=== PATIENT | female | born 1955 | race Caucasian/White ===

== ENCOUNTER → 2016-09-01 | Outpatient (CLI) | payer OTHER ==
[2014-01-15 17:28] VITALS: BP 94/51
[~2016-09-01] MED LIST: ACET325T9 PO; LISI1TAB7 PO; LISI2.5T PO; LORA10TA3 PO; LORA5TAB7 PO; OMEP20CA9 PO; OMEP40CA5 PO; TRAM50TA PO
--- NOTE | 2016-09-01 15:08 | KCIC ---
PROCEDURE AP and lateral left hip radiographs 09/01/2016 HISTORY Left hip pain for 6 months. FINDINGS AP and lateral digital radiographs of the left hip were obtained. No fracture or dislocation of the left hip is seen. Mild degenerative changes are seen involving the left hip. Mild degenerative changes are seen involving the left SI joint. IMPRESSION Mild degenerative changes are seen involving the left hip. No acute osseous abnormality is seen. Electronically signed by: Emanuel Blair MD (Sep 01, 2016 15:06:07)
== END | disposition home or self-care (01) ==
LOC: KCIC 14:32
PROVIDERS: ATTEND Family Medicine
DX: M25.552 Pain in left hip (principal)
CPT/HCPCS: 73502

== ENCOUNTER → 2016-09-20 | Outpatient (CLI) | payer OTHER ==
[2014-01-15 17:28] VITALS: BP 94/51
[~2016-09-20] MED LIST changes: +BUPIVACAINE MPF 0.5% 10 ML VIAL for KCIC. IJ ONE; +IOHEXOL 300 MG/ML 10ML VIAL. INT ART ONE; +LIDOCAINE 1% Multi-Dose 20 ML VIAL. ID ONE; +methylPREDNISolone ACETATE 40 MG/ML VIAL. INT ART ONE
--- NOTE | 2016-09-20 17:00 | KCIC ---
PROCEDURE Therapeutic left hip injection using fluoroscopic guidance. HISTORY Chronic hip pain. TECHNIQUE The procedure was explained to the patient as were potential risks, including infection, bleeding or allergic reaction. All questions were answered. Informed written and verbal consent was obtained. The hip was prepped and draped in the usual sterile manner. Following administration of local anesthetic, a 22-gauge spinal needle was advanced into the hip joint without difficulty, with care taken to avoid the vascular structures. Stylet was removed and following negative aspiration, a mixture of 4 cc Omnipaque-300, 2 cc (80 mg) Depo-Medrol, 4 cc 0.5% Marcaine and 4 cc 1% lidocaine were injected without difficulty. Fluoroscopy demonstrates uniform and satisfactory distribution of the injection through the hip. The needle was removed. There was good hemostasis at the injection site. The patient left in stable condition without immediate complication. The patient was given postprocedural instructions, instructed to contact us or the emergency room if there are any complications. A single spot image was obtained. FLUOROSCOPY TIME: 42 seconds Electronically signed by: Troy Henao MD (September 20, 2016 16:58:35)
== END | disposition home or self-care (01) ==
LOC: KCIC 14:40
PROVIDERS: ATTEND Orthopaedic Surgery Sports Medicine
DX: M25.552 Pain in left hip (principal); G89.29 Other chronic pain
CPT/HCPCS: 20610; 77002; J1030; Q9967

== ENCOUNTER → 2017-02-01 | Outpatient (CLI) | payer OTHER ==
[2014-01-15 17:28] VITALS: BP 94/51
[~2017-02-01] MED LIST changes: -BUPIVACAINE MPF 0.5% 10 ML VIAL for KCIC. IJ ONE; -IOHEXOL 300 MG/ML 10ML VIAL. INT ART ONE; -LIDOCAINE 1% Multi-Dose 20 ML VIAL. ID ONE; -methylPREDNISolone ACETATE 40 MG/ML VIAL. INT ART ONE
--- NOTE | 2017-02-01 15:36 | KCIC ---
INDICATION: Chronic low back pain with left lumbar radiculopathy. Left hip pain. TECHNIQUE: Sagittal T1, sagittal T2, sagittal STIR, axial T1, and axial T2 sequences are provided. No comparison is available. FINDINGS: There is no marrow edema. There is no worrisome marrow lesion. There is mild wedging of the T10, T11, and T12 vertebral bodies, there is no associated edema and this does not appear acute. There is narrowing of the interspaces in the lower thoracic spine as well. There is diffuse disc desiccation. There is narrowing of the interspace at L5-S1. The conus medullaris is normal in signal intensity and in position. Subcutaneous edema is noted. There is a probable left renal cyst measuring 11 mm. The numbering system assumes 5 lumbar type vertebral bodies. Findings by individual level are as follows: T11-T12, T12-L1: There is no canal or foraminal compromise. L1-L2: There is facet hypertrophy without canal or foraminal compromise. There is negligible retrolisthesis. L2-L3: There is a disc bulge and mild facet hypertrophy with slight left lateral recess narrowing and mild left foraminal narrowing. L3-L4: There is facet hypertrophy with minimal left foraminal narrowing. There is a left foraminal/far lateral protrusion. L4-L5: There is a disc osteophyte complex and facet hypertrophy with acop-xx-laezauya foraminal narrowing. L5-S1: There is a disc osteophyte complex and facet hypertrophy with moderate bilateral foraminal narrowing. IMPRESSION: Mild degenerative disc disease and facet hypertrophy in the lumbar spine. There is no high-grade canal stenosis. Foraminal narrowing is greatest at L5-S1. Electronically signed by: Joni French MD (02/01/2017 3:32 PM) [facility]-KCIC1
== END | disposition home or self-care (01) ==
LOC: KCIC MRI 14:28
PROVIDERS: ATTEND Physical Medicine & Rehabilitation
DX: M51.16 Intervertebral disc disorders with radiculopathy, lumbar region (principal); G89.29 Other chronic pain; M25.552 Pain in left hip
CPT/HCPCS: 72148

== ENCOUNTER → 2021-03-13 | Day surgery (SDC) | payer MEDICARE ==
[~2021-03-13] VITALS: Ht 162.6 cm; Wt 126.0 kg
[~2021-03-13] MED LIST changes: +ALLO300T PO; +FLUT100D2 IH; +GABA600T7 PO; +HYDR12.575 PO; +HYDROmorphone 2 MG/ML VIAL IVP PRN; +IV RINGERS,LACTATED 1000ML 1,000 ML IV SCH; +LISI1TAB39 PO; -LISI1TAB7 PO; -LISI2.5T PO; +LISI2.5T12 PO; +LOVA40TA2 PO; +MORPHINE SULFATE 2 MG/ML INJ. IVP PRN; +OMEP20CA16 PO; -OMEP20CA9 PO; -OMEP40CA5 PO; +OMEP40CA7 PO; +ONDA4TAB12 PO; +PROCHLORPERAZINE 10 MG/2 ML VIAL. IVP PRN; +VENTOLIN HFA18 GM INH; +fentaNYL PF VIAL 100 MCG/2 ML VIAL IVP PRN
[2021-03-13 07:17] VITALS: BP 135/60
[2021-03-13 08:32] VITALS: BP 118/55
--- NOTE | 2021-03-13 11:22 | CONS ---
DATE OF CONSULTATION: 03/13/2021 UPDATED HISTORY AND PHYSICAL REFERRING PHYSICIAN: Frankie Talley MD. HISTORY OF PRESENT ILLNESS: A 65-year-old female with past medical history significant for gouty arthritis, asthma, hypertension, hyperlipidemia, hiatal hernia, history of colonic polyps, diverticulosis, who is seen for persistent epigastric pain, status post cholecystectomy, mainly is in the morning and improves throughout the day. She has been on PPI therapy with modest improvement. With continued issues, she requests additional evaluation. She has also had a family history of colon cancer and a previous history of polyps. The last exam was approximately 5 years ago. PAST MEDICAL HISTORY: Colon polyps, GERD, hypertension, hyperlipidemia, asthma, gouty arthritis. ALLERGIES: PENICILLIN. MEDICATIONS: Include; albuterol, allopurinol, Flovent, gabapentin, lisinopril, hydrochlorothiazide, lovastatin, omeprazole, ondansetron. PAST SURGICAL HISTORY: Cholecystectomy, appendectomy. FAMILY HISTORY: As stated multiple colon cancers. REVIEW OF SYSTEMS: Per records. PHYSICAL EXAMINATION: GENERAL: Reveals a well-nourished, well-developed female who is alert, cooperative, in no acute distress. VITAL SIGNS: Temperature is 97.9, pulse 90, respiratory rate 22. LUNGS: Clear. CARDIOVASCULAR: Reveals an S1, S2, without S3, S4 or appreciable murmur. ABDOMEN: Reveals a soft abdomen, normal bowel sounds, no appreciable hepatosplenomegaly. EXTREMITIES: Reveals no cyanosis, clubbing or edema. IMPRESSION AND PLAN: 1. Nausea, status post cholecystectomy with hiatal hernia, peptic ulcer disease, gastroparesis, malignancy, certainly in the differential; therefore, recommend upper endoscopy. If this is unrevealing, consideration of gastric emptying study would be pursued. 2. History of colonic polyps, recent diverticulitis. Surveillance exam is recommended with a personal history of polyps and family history of colon cancer. RIVAS DR: Anna TID: [id number]
--- NOTE | 2021-03-16 15:12 | PATHOLOGY ---
[facility] Accession Number: [id number] . 01 Material submitted: . cecum - CECAL POLYP . 01 Clinical history: . NAUSEA, EPIGASTRIC PAIN COLONOSCOPY . 02 Diagnosis: Colon biopsies, cecal polyp: - Tubular adenoma. ([facility]; 03/16/2021) [facility] 03/16/2021 0911 Local . 02 Comment: There is no high-grade dysplasia or evidence of malignancy. ([facility]; 03/16/2021) . 02 Electronically signed: . Kamaljit Salgado MD, Pathologist NPI- [id number] . 01 Gross description: . The specimen is received in formalin, labeled "Horvath, Dina, cecal polyp". Received are 5 segments of pale villar tissue ranging in size from 0.2 cm to 0.5 cm in maximum dimensions. The specimen is submitted entirely in cassette A1.([facility]; 03/13/2021) [facility] 03/13/2021 1548 Local . 02 Pathologist provided ICD-10: D12.0 . 02 CPT . 046067 Specimen Comment: A courtesy copy of this report has been sent to [phone], [phone] Specimen Comment: [id number] Specimen Comment: Report sent to / DR REYES Specimen Comment: A duplicate report has been generated due to demographic updates. Performed at: 01 [facility] [address] [facility] [address], [place] [id number] MD Rudy Aiken MD Phone: [phone] Performed at: 02 [facility] [address] [place], [place] [id number] MD Kamaljit Salgado MD Phone: [phone]
== END | disposition home or self-care (01) ==
LOC: ENDOS 06:50
PROVIDERS: ATTEND Internal Medicine Gastroenterology
DX: Z12.11 Encounter for screening for malignant neoplasm of colon (principal); K64.0 First degree hemorrhoids; K57.30 Diverticulosis of large intestine without perforation or abscess without bleeding; D12.0 Benign neoplasm of cecum; R11.0 Nausea; K31.7 Polyp of stomach and duodenum; K44.9 Diaphragmatic hernia without obstruction or gangrene; K31.89 Other diseases of stomach and duodenum; K63.89 Other specified diseases of intestine; I10 Essential (primary) hypertension; J45.909 Unspecified asthma, uncomplicated; K21.9 Gastro-esophageal reflux disease without esophagitis; E78.00 Pure hypercholesterolemia, unspecified; M19.90 Unspecified osteoarthritis, unspecified site; M10.9 Gout, unspecified; Z90.49 Acquired absence of other specified parts of digestive tract; Z98.890 Other specified postprocedural states; Z79.899 Other long term (current) drug therapy; Z87.891 Personal history of nicotine dependence; Z88.0 Allergy status to penicillin; Z86.010 Personal history of colon polyps; Z80.0 Family history of malignant neoplasm of digestive organs
CPT/HCPCS: 43235; 45385; 88305